=== PATIENT | female | born 1985 ===

== ENCOUNTER → 2020-11-06 10:08 | Outpatient (BNVA) | payer OTHER, SELFPAY | PROVIDERS: Visit Provider Internal Medicine Gastroenterology ==

== ENCOUNTER 2020-11-19 14:00 | Day surgery (SDC) | payer OTHER, SELFPAY ==
[2020-11-13 15:06] VITALS: BMI 24.7
--- NOTE | 2020-11-18 09:03 | P.CONAN_ITS ---
Documented by User: Nila Morales 11/18/20 09:04 HPI - Anesthesia Eval Consult details Narrative: 35yo F for Upper Endoscopy PMFSH Active Problems Active Problems: All Active Problems (Updated 11/13/20 @ 14:38 by Mellissa Oneal) Globus sensation (Acute) GERD without esophagitis (Acute) Early satiety (Acute) Past Medical History Medical History (Updated 11/13/20 @ 14:38 by Mellissa Oneal) Asthma Complication of section wound PTSD (post-traumatic stress disorder) Family History Family History (Updated 11/06/20 @ 10:14 by Yuliana Khalil) Maternal Grandmother Cancer Brother Gastroenteritis Stomach ulcer Surgical History Surgical History (Updated 11/13/20 @ 14:38 by Mellissa Oneal) History of back surgery History of esophagogastroduodenoscopy (EGD) Hx of section Hx of tubal ligation [place] teeth extracted Social History Social History (Updated 11/06/20 @ 10:14 by Yuliana Khalil) Household Members: Children Are you a primary career and transition teacher to a significant other at home: No Do you presently have visiting nurse or other home services: No Alcohol intake: current Alcohol intake frequency: does not drink Smoking Status: Never smoker Second Hand Smoke Exposure: No Use of substances other than those prescribed or required for medical reasons: No Have you been hit, kicked, punched, or otherwise hurt by someone within the past year? If so, by whom?: No Advance Directives: No Advance Directives Information Provided: No Advance Directives on File: No Meds Allergies Allergy/AdvReac Type Severity Reaction Status Date / Time No Known Allergies Allergy Unknown NOT Verified 11/13/20 14:56 APPLICABLE Home Medications Medication Instructions Recorded Confirmed Last Taken Type albuterol sulfate 2 puff INHALATION Q4H PRN 11/13/20 11/13/20 Unknown History venlafaxine 1 cap PO DAILY 11/13/20 11/19/20 11/19/20 07:00 History Exam Exam Date and Time: November 18, 2020 0903 Height,Weight and Vital Signs: Height 5 ft 2 in Weight 61.235 kg Assessment and Plan Assessment Anesthesia Assessment: Chart Reviewed Documented by User: Jessica Mckenna 11/19/20 14:34 [facility] Past Medical History Medical History (Updated 11/13/20 @ 14:38 by Mellissa Oneal) Asthma Complication of section wound PTSD (post-traumatic stress disorder) Family History Family History (Updated 11/06/20 @ 10:14 by Yuliana Khalil) Maternal Grandmother Cancer Brother Gastroenteritis Stomach ulcer Family history of problems with anesthesia: No Surgical History Surgical History (Updated 11/13/20 @ 14:38 by Mellissa Oneal) History of back surgery History of esophagogastroduodenoscopy (EGD) Hx of section Hx of tubal ligation [place] teeth extracted History of Problems with Anesthesia: No Social History Social History (Updated 11/06/20 @ 10:14 by Yuliana Khalil) Household Members: Children Are you a primary career and transition teacher to a significant other at home: No Do you presently have visiting nurse or other home services: No Alcohol intake: current Alcohol intake frequency: does not drink Smoking Status: Never smoker Second Hand Smoke Exposure: No Use of substances other than those prescribed or required for medical reasons: No Have you been hit, kicked, punched, or otherwise hurt by someone within the past year? If so, by whom?: No Advance Directives: No Advance Directives Information Provided: No Advance Directives on File: No Meds Allergies Allergy/AdvReac Type Severity Reaction Status Date / Time No Known Allergies Allergy Unknown NOT Verified 11/13/20 14:56 APPLICABLE Home Medications Medication Instructions Recorded Confirmed Last Taken Type albuterol sulfate 2 puff INHALATION Q4H PRN 11/13/20 11/13/20 Unknown History venlafaxine 1 cap PO DAILY 11/13/20 11/19/20 11/19/20 07:00 History Exam Height,Weight and Vital Signs: Vital Signs Temp Pulse Resp BP Pulse Ox 11/19/20 14:09 98.4 F 114 H 18 116/79 94 Airway Mallampati Class: II TM Dist: >3cm Neck ROM: Full Heart: RRR Lungs: CTAB Assessment and Plan Assessment Anesthesia Assessment: Anesthesia Plan Discussed and Chart Reviewed Final Anesthetic Review NPO: Yes ASA Class: II Final Preanesthetic Review: No Changes in Pt Med Stat, Meds/Allgs Chart Reviewed, Consent Obtained/Reviewed and Anes Risks/Benef Reviewed Patient Risk: Low Procedure Risk: Low Assessment/Block/Sedation in SS: Assess/Block/Sedation-SS Anesthetic Plan Anesthetic Plan: MAC: Disposition: Standard PACU
[2020-11-19] VITALS (7 sets, daily range): BP systolic 88–116; BP diastolic 46–79; PULSE 86–114; RESP 18–20; TEMP 36.9; O2SAT 94–100
--- NOTE | 2020-11-19 14:13 | P.HPSUR_ITS ---
Pre-Procedural Eval Section B Chief Complaint: early satiety,reflux disease Relevant Family History (Specify if Yes): No Relevant Social History: None Present Medications: see Short Stay Collaborative assessment Medical History: Significant History (asthma, PTSD) History of Previous Operations: Relevant previous surgery/procedure and date(s) (History of back surgery History of esophagogastroduodenoscopy (EGD) Hx of section Hx of tubal ligation [place] teeth extracted) Allergies: Allergies Allergy/AdvReac Type Severity Reaction Status Date / Time No Known Allergies Allergy Unknown NOT Verified 11/13/20 14:56 APPLICABLE Review of Systems Sugical H&P ROS: Negative: Constitution, Cardiovascular, Respiratory, Neurological, Psychiatric, Hem-Onc, Allergic/Immunologic, Gastrointestinal, Genitourinary, Musculoskeletal, Integumentary, Endocrine and Eyes/Ears/Nose/Throat Exam Surgical H&P Exam: Normal: HEENT, Normal: Heart, Normal: Lungs, Normal: Extremities, Normal: Abdomen, Normal: Skin and Normal: Neurological Plan Diagnosis/Plan: Unchanged I have reviewed the history and physical and performed a pertinent physical examination on my patient. No changes have occurred unless specified.
--- NOTE | 2020-11-19 14:14 | PM.OP ---
Brief Operative Note Date of Service: 11/19/20 Pre-op diagnosis: globus, dypshagia, GERD Post-op diagnosis: same Procedure: see op note Surgeon: Silke Renteria MD Anesthesia: MAC Estimated blood loss (mL): 0 Condition: stable Disposition: PACU
--- NOTE | 2020-11-19 14:14 | W.PM.OPN ---
Operative Note Operative Note Date of Service: 11/19/20 Narrative: Procedure Description: EGD FLEXIBLE TRANSORAL UPPER GASTROINTESTINAL ENDOSCOPY UPPER ENDOSCOPY Consent: Indications for the procedure and potential complications of bleeding, perforation, reaction to medications and missed diagnosis were discussed with the patient and informed consent was obtained. Instrument: Olympus GIF H 190 J mid size upper endoscope Monitoring: Vital signs and clinical assessment, continuous EKG monitoring, Pulse oximetry, Carbon Dioxide monitoring and blood pressure monitoring were done throughout the procedure. Procedure: The patient was placed in the left lateral decubitis position and pre-procedure medications were administered and a bite block was placed. The endoscope was inserted into the mouth and advanced under direct vision to the third part of duodenum. A careful inspection was made as the upper endoscope was withdrawn including a retroflexed examination of the proximal stomach; Findings and interventions are described below. Findings: Larynx:normal Esophagus: GE junction at 34 cm, diaphragm hiatus at 37 cm, non obstructive schatzki ring noted, dilation done with 17 mm dilator using savary as well as disruption with forceps. Bx taken from GEj, distal esophagus and proximal esophagus in separate jars. 3 cm sliding hiatal hernia noted. LA grade A esophagitis at GEJ. Stomach: Patchy gastric erythema with possible healed erosions in antrum. Biopsies were obtained. Grade 2 flap valve on retroflexed examination of the cardia. Duodenum: mild bulbar inflammation and normal descending duodenum, bx taken Intervention: Biopsies as noted above, savary dilation Impression/Findings: schatzki ring hiatal hernia gastritis duodenitis esophagitis PLAN: High dose PPi for 3 months, can use carafate if needed if sx persist then referral for hiatal hernia repair, consideration of fundoplication as well reflux precautions
[2020-11-19] MEDS: Lactated Ringers 1,000 ML 100 ML IVCONT (14:23)
--- NOTE | 2020-11-19 17:39 | HO.POSTANES ---
Post Anesthesia Evaluation Post Anesthesia Evaluation Vital Signs: Vital Signs Temp Pulse Resp BP Pulse Ox 11/19/20 15:42 98.5 F 11/19/20 15:30 86 18 107/71 100 11/19/20 15:15 93 18 108/66 100 11/19/20 15:12 90 18 105/68 100 11/19/20 15:08 90 18 94/59 L 11/19/20 15:00 98.5 F 98 20 88/46 L 98 11/19/20 14:09 98.4 F 114 H 18 116/79 94 Anesthesia: Monitored Mental Status: Awake Pain Control: Satisfactory Nausea/Vomiting: None Hydration: Adequate Anesthesia-Related Issues: No Anes. Related Issues
== END 2020-11-19 15:48 | disposition home or self-care (01) ==
PROVIDERS: Visit Provider Internal Medicine Gastroenterology
PROC: 0DJ08ZZ Inspection of Upper Intestinal Tract, Via Natural or Artificial Opening Endoscopic (ICD-10-PCS; CPT 43235; principal; 2020-11-19 15:40)
DX: K22.2 Esophageal obstruction (principal); K29.80 Duodenitis without bleeding; K29.70 Gastritis, unspecified, without bleeding; K21.00 Gastro-esophageal reflux disease with esophagitis, without bleeding; K44.9 Diaphragmatic hernia without obstruction or gangrene
CPT/HCPCS: 43248; 43239; 88305; 88342; J2250

== ENCOUNTER → 2021-01-29 09:09 | Outpatient (BNVA) | payer OTHER, SELFPAY | PROVIDERS: Visit Provider Internal Medicine Gastroenterology ==

== ENCOUNTER 2023-02-17 10:51 | Outpatient (REF) | payer OTHER, SELFPAY ==
[2023-02-17 12:18] LABS: MANUAL DIFF FLAG NO
[2023-02-17 13:17] LABS: Basophils Percent Auto 0.5 % (0-2); Eosinophils Absolute Auto 0.4 X10*3/uL (0.0-0.4); Eosinophils Percent Auto 6.2 % (0-4); Hematocrit 39.5 % (37.0-47.0); Hemoglobin 13.8 g/dl (12.0-16.0); Imm Gran Abs Auto 0.01 X10*3/uL (0.00-0.03); Imm Gran Pct Auto 0.2 % (0.0-0.4); Lymphocytes Absolute Auto 1.5 X10*3/uL (1.2-4.9); Lymphocytes Percent Auto 23.5 % (20-40); Mean Corpuscular HGB Conc 34.9 g/dl (31.0-35.0); Mean Corpuscular Hemoglobin 31.2 pg (27.0-33.0); Mean Corpuscular Volume 89.2 fL (80.0-98.0); Mean Platelet Volume 10.3 fL (9.4-12.3); Monocytes Absolute Auto 0.6 X10*3/uL (0.1-1.2); Monocytes Percent Auto 9.6 % (2-11); Neutrophils Absolute Auto 3.9 x10*3/uL (2.0-8.3); Platelet Count 308 X10*3/uL (160-400); Red Blood Count 4.43 X10*6/uL (4.20-5.50); Red Cell Distribution Width 11.7 % (11.0-16.0); White Blood Count 6.5 X10*3/uL (4.8-10.8)
[2023-02-17 13:58] LABS: Alanine Aminotransferase 13 U/L (0-31); Albumin Level 4.5 g/dL (3.5-5.0); Alkaline Phosphatase 53 U/L (39-117); Anion Gap 10 (12-20); Aspartate Amino Transferase 14 U/L (5-31); Bilirubin Total 0.6 mg/dL (0.0-1.0); Blood Urea Nitrogen 11 mg/dL (9-16); C Reactive Protein 0.17 mg/dL (< or = 0.50); Calcium 9.9 mg/dL (8.4-10.2); Carbon Dioxide 25 mmol/L (22-29); Chloride 107 mmol/L (96-108); Estimated Glomerular Filt Rate > 60; Glucose Random 78 mg/dL (60-115); Potassium 4.1 mmol/L (3.3-5.1); Sodium 138 mmol/L (135-145); Total Protein 6.8 g/dL (6.5-8.0)
[2023-02-17 14:00] LABS: Erythrocyte Sedimentation Rate 7 MM/HR (0-20)
[2023-02-17 14:29] LABS: Ferritin 20 ng/mL (10-122); Folate 12.2 ng/mL (> or = 4.0); Vitamin B12 447 pg/mL (200-900); Vitamin D 25-OH Total 22.8 ng/mL (>30)
[2023-02-22 16:19] LABS: Zinc 54 mcg/dL (60-130)
[2023-02-23 04:09] LABS: Vitamin C 0.7 mg/dL (0.3-2.7)
[2023-02-23 23:39] LABS: Vitamin A 54 mcg/dL (38-98)
[2023-02-24 00:24] LABS: Nicotinamide 26 ng/mL; Vit B3 - Nicotinic Acid <20 ng/mL
[2023-02-24 13:09] LABS: Alpha-Tocopherol 10.7 mg/L (5.7-19.9); Beta-Gamma Tocopherol <1.0 mg/L (<=4.3)
[2023-02-24 16:29] LABS: Vitamin B5 (Pantothenic Acid) <40 ng/mL (<275)
[2023-02-25 16:13] LABS: Vitamin B1 10 nmol/L (8-30)
[2023-02-25 18:54] LABS: Vitamin K1 454 pg/mL (130-1500)
[2023-02-26 07:23] LABS: Transglutaminase Ab IgG <1.0 U/mL; Transglutaminase IgA <1.0 U/mL
[2023-02-26 10:23] LABS: Gliadin Deamidated IgA Ab <1.0 U/mL; Gliadin Deamidated IgG Ab 10.8 U/mL
[2023-02-26 15:08] LABS: Vitamin B6 5.7 ng/mL (2.1-21.7)
== END 2023-02-17 10:52 | disposition home or self-care (01) ==
LOC: HO.LAB 10:51
PROVIDERS: PCP Internal Medicine; Visit Provider Internal Medicine Gastroenterology
DX: K21.9 Gastro-esophageal reflux disease without esophagitis (principal); K51.50 Left sided colitis without complications; K75.81 Nonalcoholic steatohepatitis (NASH); R10.33 Periumbilical pain; G89.29 Other chronic pain; R63.4 Abnormal weight loss; R19.7 Diarrhea, unspecified; R68.81 Early satiety; R09.89 Other specified symptoms and signs involving the circulatory and respiratory systems
CPT/HCPCS: 36415; 80053; 82180; 82306; 82550; 82607; 82728; 82746; 84207; 84425; 84443; 84446; 84590; 84591; 84597; 84630; 85025; 85652; 86140; 86258; 86364; 99212

== ENCOUNTER 2023-03-02 06:19 | Day surgery (SDC) | payer OTHER, SELFPAY ==
[2023-02-28 13:09] VITALS: BMI 21.4
--- NOTE | 2023-03-01 12:33 | HO.ANESPROP2 ---
Documented by User: Nila Morales NP 03/01/23 12:35 HPI - Anesthesia Eval Consult details Narrative: 37yo F for Upper Endoscopy PMFSH Active Problems Active Problems: All Active Problems (Updated 02/28/23 @ 13:07 by Mellissa Oneal, RN) Globus sensation (Acute) GERD without esophagitis (Acute) Early satiety (Acute) Diarrhea (Acute) Weight loss (Acute) Past Medical History Medical History (Updated 02/28/23 @ 13:07 by Mellissa Oneal, RN) Asthma Complication of section wound GERD (gastroesophageal reflux disease) PTSD (post-traumatic stress disorder) Family History Family History Maternal Grandmother Cancer Brother Gastroenteritis Stomach ulcer Family history of problems with anesthesia: No Surgical History Surgical History (Updated 02/28/23 @ 13:06 by Mellissa Oneal RN) History of back surgery History of esophagogastroduodenoscopy (EGD) Hx of section Hx of tubal ligation [place] teeth extracted History of Problems with Anesthesia: No Social History Social History Household Members: Children Are you a primary cardiac care nurse to a significant other at home: No Do you presently have visiting nurse or other home services: No Alcohol intake: current Alcohol intake frequency: does not drink Patient Tobacco Use Status: Never used Tobacco Second Hand Smoke Exposure: No Meds Allergies Allergy/AdvReac Type Severity Reaction Status Date / Time No Known Allergies Allergy Unknown NOT Verified 02/17/23 11:01 APPLICABLE Home Medications Medication Instructions Recorded Confirmed Last Taken Type albuterol sulfate 90 mcg/actuation 2 puff inhalation Q4H PRN wheezing 11/13/20 02/28/23 Unknown History aerosol inhaler bupropion HCl 150 mg tablet,12 hr 150 mg PO BID 02/17/23 02/28/23 Unknown History sustained-release Exam Exam Date and Time: March 01, 2023 1233 Height,Weight and Vital Signs: Height 5 ft 2 in Weight 53.07 kg Pertinent Lab Results Pertinent Lab Results: Laboratory Tests 02/17/23 02/17/23 12:15 12:15 WBC 6.5 Hgb 13.8 Hct 39.5 Plt Count 308 Sodium 138 Potassium 4.1 Chloride 107 Carbon Dioxide 25 BUN 11 Creatinine 0.91 Assessment and Plan Assessment Anesthesia Assessment: Chart Reviewed Final Anesthetic Review Family History of Problems with Anesthesia: No History of Problems with Anesthesia: No Documented by User: Alfredito Granados MD 03/02/23 18:13 [facility] Past Medical History Medical History (Updated 02/28/23 @ 13:07 by Mellissa Oneal, RN) Asthma Complication of section wound GERD (gastroesophageal reflux disease) PTSD (post-traumatic stress disorder) Functional capacity: independent ambulation Family History Family History Maternal Grandmother Cancer Brother Gastroenteritis Stomach ulcer Surgical History Surgical History (Updated 02/28/23 @ 13:06 by Mellissa Oneal RN) History of back surgery History of esophagogastroduodenoscopy (EGD) Hx of section Hx of tubal ligation [place] teeth extracted Social History Social History Household Members: Children Are you a primary cardiac care nurse to a significant other at home: No Do you presently have visiting nurse or other home services: No Alcohol intake: current Alcohol intake frequency: does not drink Patient Tobacco Use Status: Never used Tobacco Second Hand Smoke Exposure: No Meds Allergies Allergy/AdvReac Type Severity Reaction Status Date / Time No Known Allergies Allergy Unknown NOT Verified 02/17/23 11:01 APPLICABLE Home Medications Medication Instructions Recorded Confirmed Last Taken Type albuterol sulfate 90 mcg/actuation 2 puff inhalation Q4H PRN wheezing 11/13/20 02/28/23 Unknown History aerosol inhaler bupropion HCl 150 mg tablet,12 hr 150 mg PO BID 02/17/23 02/28/23 Unknown History sustained-release Exam Airway Mallampati Class: III TM Dist: >3cm Neck ROM: Full Loose/Missing/Broken Teeth: Yes Assessment and Plan Assessment Anesthesia Assessment: Anesthesia Plan Discussed Final Anesthetic Review NPO: Yes ASA Class: II Final Preanesthetic Review: Meds/Allgs Chart Reviewed, Consent Obtained/Reviewed and Anes Risks/Benef Reviewed Patient Risk: Intermediate Procedure Risk: Intermediate Anesthetic Plan Anesthetic Plan: MAC: and Agree w/ Assess. and Plan Disposition: Standard PACU
--- NOTE | 2023-03-02 06:11 | MHC.SHP ---
Pre-Procedural Eval Section A Date of Service: 03/02/23 The patient is an INPATIENT: No The History & Physical has been completed within 30 days and I have reviewed it.: Yes Section B Chief Complaint: Gastro-esophageal reflux disease without esophagit Details of Present Illness: dysphagia Present Medications: see Short Stay Collaborative assessment Medical History: Significant History Allergies: Allergies Allergy/AdvReac Type Severity Reaction Status Date / Time No Known Allergies Allergy Unknown NOT Verified 02/17/23 11:01 APPLICABLE Review of Systems Sugical H&P ROS: Negative: Constitution, Cardiovascular, Respiratory, Neurological, Psychiatric, Hem-Onc, Allergic/Immunologic, Gastrointestinal, Genitourinary, Musculoskeletal, Integumentary, Endocrine and Eyes/Ears/Nose/Throat Exam Surgical H&P Exam: Normal: HEENT, Normal: Heart, Normal: Lungs, Normal: Extremities, Normal: Abdomen, Normal: Skin and Normal: Neurological Plan Diagnosis/Plan: Unchanged I have reviewed the history and physical and performed a pertinent physical examination on my patient. No changes have occurred unless specified. Time Spent With Patient Time: Total time managing care of this patient today ____ minutes.
[2023-03-02 06:32] VITALS: BP 101/69; PULSE 95; RESP 16; TEMP 36.2; O2SAT 100; BMI 21.4
[2023-03-02] MEDS: Lactated Ringers 1,000 ML 100 ML IVCONT (06:47)
--- NOTE | 2023-03-02 07:51 | W.PM.OPN ---
Operative Note Operative Note Date of Service: 03/02/23 Narrative: Procedure Description: EGD Indication: dysphagia Anesthesia: MAC FLEXIBLE TRANSORAL UPPER GASTROINTESTINAL ENDOSCOPY UPPER ENDOSCOPY Consent: Indications for the procedure and potential complications of bleeding, perforation, reaction to medications and missed diagnosis were discussed with the patient and informed consent was obtained. Instrument: Olympus GIF H 190 J mid size upper endoscope Monitoring: Vital signs and clinical assessment, continuous EKG monitoring, Pulse oximetry, Carbon Dioxide monitoring and blood pressure monitoring were done throughout the procedure. Procedure: The patient was placed in the left lateral decubitis position and pre-procedure medications were administered and a bite block was placed. The endoscope was inserted into the mouth and advanced under direct vision to the third part of duodenum. A careful inspection was made as the upper endoscope was withdrawn including a retroflexed examination of the proximal stomach; Findings and interventions are described below. Findings: Larynx:normal Esophagus: GE junction at 34? cm, diaphragm hiatus at 37 cm, non obstructive schatzki ring noted, dilation done with 18 mm dilator using savary as well as disruption with forceps. Bx taken from GEj, distal esophagus and proximal esophagus in separate jars. 3 cm sliding hiatal hernia noted. Stomach: Mild erythema. Biopsies were obtained. Grade 2 flap valve on retroflexed examination of the cardia. Duodenum: normal duodenum, bx taken Intervention: Biopsies as noted above, savary dilation Impression/Findings: schatzki ring hiatal hernia gastritis PLAN: cont with PPI if sx persist then manometry and referral for hiatal hernia repair, consideration of fundoplication as well reflux precautions
[2023-03-02 08:09] VITALS: BP 94/52; PULSE 93; RESP 16; TEMP 36.2; O2SAT 100
[2023-03-02 08:24] VITALS: BP 105/66; PULSE 96; RESP 16; TEMP 36.2; O2SAT 100
== END 2023-03-02 08:42 | disposition home or self-care (01) ==
PROVIDERS: PCP Internal Medicine; Visit Provider Internal Medicine Gastroenterology
PROC: 0DJ08ZZ Inspection of Upper Intestinal Tract, Via Natural or Artificial Opening Endoscopic (ICD-10-PCS; CPT 43235; principal; 2023-03-02 07:30)
DX: R13.10 Dysphagia, unspecified (principal); K21.9 Gastro-esophageal reflux disease without esophagitis; K22.2 Esophageal obstruction; R09.89 Other specified symptoms and signs involving the circulatory and respiratory systems; R68.81 Early satiety; R63.4 Abnormal weight loss; Z68.21 Body mass index [BMI] 21.0-21.9, adult; R19.7 Diarrhea, unspecified; K29.50 Unspecified chronic gastritis without bleeding; K44.9 Diaphragmatic hernia without obstruction or gangrene; J45.909 Unspecified asthma, uncomplicated; F43.10 Post-traumatic stress disorder, unspecified; Z79.899 Other long term (current) drug therapy; Z98.890 Other specified postprocedural states
CPT/HCPCS: 43248; 43239; 88305; 88342; C1769

== ENCOUNTER 2023-03-20 08:30 | Outpatient (REF) | payer OTHER, SELFPAY ==
--- NOTE | ~2023-03-20 | CT_ITS ---
EXAMINATION: CT ABDOMEN AND PELVIS WITH CONTRAST CLINICAL INFORMATION: Abnormal weight loss. Abdominal pain and diarrhea. COMPARISON: Abdominal ultrasound 04/20/2019. TECHNIQUE: Multidetector volumetric images were obtained from the superior aspect of the liver through the pubic symphysis following administration 85 mL of Omnipaque 350 intravenous contrast. Sagittal and coronal reformatted images were obtained on the technologist's workstation. Oral contrast: Yes This CT examination was performed using dose optimization techniques as appropriate, variously including the following: *Automated exposure control *Adjustment of mA and/or kV according to patient size (this includes techniques or standardized protocols for targeted exams where dose is matched to indication/reason for exam; i.e. extremities or head) *Use of iterative reconstruction technique DLP: 85 mGy-cm FINDINGS: LUNG BASES: The visualized lung bases are unremarkable. LIVER, GALLBLADDER, AND BILIARY TREE: The liver is normal in size, shape, and attenuation. No focal hepatic lesion or biliary ductal dilatation is present. The gallbladder is unremarkable with no evidence of radiopaque gallstones, gallbladder wall thickening, or obvious pericholecystic inflammatory changes. PANCREAS: No discrete pancreatic mass. No ductal dilatation. SPLEEN: Spleen is normal in size. ADRENAL GLANDS: No adrenal mass. KIDNEYS AND URETERS: The kidneys are normal in size, shape, and attenuation. No hydronephrosis, hydroureter, or calculi seen. No perinephric stranding. BLADDER: Unremarkable. GASTROINTESTINAL TRACT: The small bowel is normal in caliber. No mesenteric mass or fluid. The appendix is normal. The large bowel is normal in caliber. No discrete mass is seen. There is no fat deposition in the colon wall to suggest chronic inflammatory bowel disease. ABDOMINAL WALL: No significant hernia is appreciated. LYMPH NODES: No adenopathy. VASCULAR: Unremarkable. PELVIC VISCERA: Fibroid uterus. OSSEOUS STRUCTURES: No suspicious osseous lesions. CT/CT abdomen pelvis w IV con IMPRESSION: No evidence of abdominal malignancy. No evidence of active enterocolitis. Fibroid uterus. Fleischner guidelines were followed.
[2023-03-20] MEDS: iohexoL 350 MG/ML 100 ML INFUS..BTL IV (10:29)
[2023-03-20] MEDS: Barium Sulfate Oral (Vanilla) 450 ML ORAL.SUSP 900 ML PO (10:30)
== END 2023-03-20 08:31 | disposition home or self-care (01) ==
LOC: HO.CT 08:30
PROVIDERS: PCP Internal Medicine; Visit Provider Internal Medicine Gastroenterology
DX: R63.4 Abnormal weight loss (principal); R19.7 Diarrhea, unspecified; R68.81 Early satiety
CPT/HCPCS: 74177; Q9967

== ENCOUNTER 2023-09-15 08:42 | Outpatient (AMB) | payer OTHER, SELFPAY ==
--- NOTE | 2023-09-15 08:42 | A.OFFVIS_ITS ---
Intake Intake Visit Reasons: 8 week follow up Intake Note: Vera presents as a video call today 8 week follow up. CC: Really bad reflux that continues she states it is very painful. She still has issues with swallowing. Pantoprazole helps at times but other days she will feel really sick it is not a consistent cure for her. Allergies No Known Allergies Allergy (Unknown, Verified 02/17/23 11:01) NOT APPLICABLE HPI 8 week follow up HPI Details 37 yr old being called for f/u RECAP: she has horrible taste in her mouth globus sensation feeling something in throat can have food stuck in throat feels full all the time gets chest discomfort/pain--seems to be constant, stabbing sensation food might helps sx for 30 mins before recurrence she tried omeprazole , pantoprazole with variable success but not back to baseline on bland diet, not helped she has no constipation or diarrhea sx started about 3 months ago, but swallowing issue been longer she has asthma, worse in winter, allergy season no eczema brother has eosinophilic gastroenteritis no pets at home no hives, no mental fogginess sleep is poor due to PTSD EGD done: 11/2020----with dilation schatzki ring hiatal hernia gastritis--looked like healed erosions as well duodenitis esophagitis plan was for high dose PPI for 3 months and assess response rept EGD: EGD 02/2023 Findings: Larynx:normal Esophagus: GE junction at 34 cm, diaphragm hiatus at 37 cm, non obstructive schatzki ring noted, dilation done with 18 mm dilator using savary as well as disruption with forceps. Bx taken from GEj, distal esophagus and proximal esophagus in separate jars. 3 cm sliding hiatal hernia noted. Stomach: Mild erythema. Biopsies were obtained. Grade 2 flap valve on retroflexed examination of the cardia. Duodenum: normal duodenum, bx taken Intervention: Biopsies as noted above, savary dilation Impression/Findings: schatzki ring hiatal hernia gastritis PLAN: cont with PPI if sx persist then manometry and referral for hiatal hernia repair, consideration of fundoplication as well reflux precautions Ct 03/2023: no active colitis, fibroids INTERIM: she has ongoing regurgitaiton she felt tempt benefit from dilation but didn;t last she has issues with swallowing solid,s she drinks a ton of water to try to help passgae of food she can get chest pain with reflux she has sour, bad taste in mouth ongoing stress issues as before --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 Assessment, 1/ Regurgitation, reflux and dysphagia, suspectd due to GERD, hernia noted on EGD not seen on CT but it is a sliding hiatal hernia, PLAN: 1/change PPI to esomeprazole 2/ refer Dr Mcgraw for eval for hernia repair , maybe partial fundoplication PFSH Medical History (Updated 02/28/23 @ 13:07 by Mellissa Oneal, RN) GERD (gastroesophageal reflux disease) Asthma PTSD (post-traumatic stress disorder) Complication of section wound Surgical History (Updated 02/28/23 @ 13:06 by Mellissa Oneal RN) History of back surgery Hx of section Hx of tubal ligation History of esophagogastroduodenoscopy (EGD) [place] teeth extracted Family History Maternal Grandmother Cancer Brother Gastroenteritis Stomach ulcer Social History Household Members: Children Are you a primary primary care nurse practitioner to a significant other at home: No Do you presently have visiting nurse or other home services: No Alcohol intake: current Alcohol intake frequency: does not drink Patient Tobacco Use Status: Never used Tobacco Second Hand Smoke Exposure: No Assessment & Plan Assessment & Plan (1) GERD without esophagitis: Code(s): K21.9 - Gastro-esophageal reflux disease without esophagitis Plan see above Telehealth Telehealth Location of provider rendering services: practice address Location of patient: address on file Patient Identification confirmed using: Name, : Yes Telehealth method: video Patient verbally consented to treatment: Yes Patient verbally consented to billing insurance company: Yes Patient informed of any privacy concerns related to visit: Yes Minutes spent on Phone/Video with Pt.: 11 Coding Level of Care Code Tele Est Pt Level 3 (39472) Diagnoses GERD without esophagitis K21.9
== END 2023-09-15 09:49 | disposition home or self-care (01) ==
LOC: HO.HGI 08:42
PROVIDERS: PCP Internal Medicine; Visit Provider Internal Medicine Gastroenterology
DX: K21.9 Gastro-esophageal reflux disease without esophagitis (principal)
CPT/HCPCS: 99213

== ENCOUNTER → 2023-09-15 08:42 | Outpatient (BNVA) | payer OTHER, SELFPAY | PROVIDERS: PCP Internal Medicine; Visit Provider Internal Medicine Gastroenterology ==

== ENCOUNTER → 2023-10-06 09:22 | Outpatient (BNVA) | payer OTHER, SELFPAY | PROVIDERS: PCP Internal Medicine; Visit Provider Physician Assistant Surgical ==

== ENCOUNTER 2023-10-11 08:19 | Outpatient (AMB) | payer OTHER, SELFPAY ==
--- NOTE | 2023-10-11 13:23 | MHC.OFFVISWM ---
Intake Intake Visit Reasons: TV Hernia Consult - Dr. Renteria Allergies No Known Allergies Allergy (Unknown, Verified 10/11/23 13:23) NOT APPLICABLE Medication List - Last Reconciled 10/11/23 by Sarmad Garza MD albuterol sulfate 90 mcg/actuation 2 puffs inhalation Q4H PRN bupropion HCl 150 mg PO BID esomeprazole magnesium 40 mg PO DAILY sucralfate (Carafate) 10 mL PO BID HPI TV Hernia Consult - Dr. Renteria HPI Details Start time: 1.20pm, End time: 1.56pm ?I spent 31 minutes speaking with the patient on the phone plus an additional 5 minutes reviewing and updating records for a total of 36 minutes HPI Comments History of Present Illness Details He has been taking Pantoprazole and recently changed to Nexium and Carafate. Has breakthrough symptoms: chest pain after she eats about 30 minutes after meal ingestion, bad taste at her mouth, bad cough Recent EGD and 11/29: 3cm hernia. Recent PAth: no esophagitis. h pylori negative CT abd/pelvis 03/2023: very small hernia, no other pathology PFSH Medical History (Updated 10/11/23 @ 13:50 by Sarmad Garza MD) Abdominal pain GERD (gastroesophageal reflux disease) Asthma PTSD (post-traumatic stress disorder) Complication of section wound Surgical History (Updated 02/28/23 @ 13:06 by Mellissa Oneal RN) History of back surgery Hx of section Hx of tubal ligation History of esophagogastroduodenoscopy (EGD) [place] teeth extracted Family History Maternal Grandmother Cancer Brother Gastroenteritis Stomach ulcer Social History Household Members: Children Are you a primary nursing care partner to a significant other at home: No Do you presently have visiting nurse or other home services: No Alcohol intake: current Alcohol intake frequency: does not drink Patient Tobacco Use Status: Never used Tobacco Second Hand Smoke Exposure: No Assessment & Plan Assessment & Plan (1) GERD without esophagitis: Code(s): K21.9 - Gastro-esophageal reflux disease without esophagitis Plan We discussed at length all the existing findings and symptoms. I recommended to do first and abdominal ultrasound to rule out cholelithiasis as this could be the cause of the pain that is her primary symptom at the moment. If the ultrasound is negative, I will order a HIDA with CCK to assess the EF of the gallbladder. If both tests are negative then the patient will need further w/up with an UGI and a 24-hr Ph Study. The patient is in agreement with this plan. Orders: Orders US abdomen comp w elastography Today R10.9 - Unspecified abdominal pain Telehealth Telehealth Location of provider rendering services: practice address Location of patient: address on file Patient Identification confirmed using: Name, : Yes Telehealth method: voice only Patient verbally consented to treatment: Yes Patient verbally consented to billing insurance company: Yes Patient informed of any privacy concerns related to visit: Yes Minutes spent on Phone/Video with Pt.: 36 Coding Level of Care Code Tele New Pt Level 3 (36046) Diagnoses GERD without esophagitis K21.9 Time Spent (min) 36
== END 2023-10-11 13:57 | disposition home or self-care (01) ==
LOC: HO.HBS 08:19
PROVIDERS: PCP Internal Medicine; Visit Provider Surgery
DX: K21.9 Gastro-esophageal reflux disease without esophagitis (principal)
CPT/HCPCS: 99203

== ENCOUNTER → 2023-10-11 08:19 | Outpatient (BNVA) | payer OTHER, SELFPAY | PROVIDERS: PCP Internal Medicine; Visit Provider Surgery ==

== ENCOUNTER 2024-01-05 09:15 | Outpatient (REF) | payer OTHER, SELFPAY ==
--- NOTE | ~2024-01-05 | US_ITS ---
EXAMINATION: US COMPLETE ABDOMEN WITH LIVER ELASTOGRAPHY CLINICAL INFORMATION: Abdominal pain. COMPARISON: CT abdomen and pelvis dated 03/20/2023; abdominal ultrasound dated 04/20/2009. TECHNIQUE: Real-time imaging of the abdominal viscera. Noninvasive ultrasound liver fibrosis assessment is performed using Belinda ElastPQ point quantification shear wave elastography (2D-SWE) with a C5-2 MHz transducer. Multiple elastography samples are obtained. FINDINGS: PANCREAS: Normal. The visualized pancreatic head and body are normal in appearance. The remainder of the pancreas is obscured from visualization by the overlying bowel gas. ABDOMINAL AORTA: The proximal, middle, and distal aortic segments are normal in caliber. INFERIOR VENA CAVA: Visualized portions are normal. LIVER: Normal. The liver demonstrates normal size, contour and echogenicity. No focal lesion or intrahepatic biliary duct dilatation. The right lobe measures 13.2 cm in length. The left lobe measures 11.0 cm in length. Portal flow is towards the liver (hepatopetal). Shear wave liver elastography median stiffness is 1.87 m/s (reference: normal median stiffness is 1.3 m/s or less). IQR/median stiffness to assess sampling precision is 0.09 (reference: good quality data set is IQR/median stiffness of 0.15 or less). GALLBLADDER: Normal. The gallbladder is physiologically distended without evidence of stones, sludge, polyps, wall thickening or pericholecystic fluid. COMMON BILE DUCT: Normal in caliber measuring 0.2 cm in diameter. RIGHT KIDNEY: Normal. No hydronephrosis. No renal calculi or focal parenchymal lesions. The kidney measures 9.2 cm in maximum dimension. LEFT KIDNEY: Normal. No hydronephrosis. No renal calculi or focal parenchymal lesions. The kidney measures 9.6 cm in maximum dimension. SPLEEN: Normal. The spleen measures 9.1 cm in maximum dimension. FREE FLUID: None. US/US abdomen comp w elastography IMPRESSION: Liver elastography: Measurements are suggestive of compensated advanced chronic liver disease but need further test for confirmation. REFERENCE: Society of Radiologists in Ultrasound Liver Stiffness Thresholds (2019): LIVER STIFFNESS THRESHOLDS: *Liver Stiffness equal or less than 1.3 m/s: High probability of being normal. *Liver Stiffness less than 1.7 m/s: In the absence of other known clinical signs, rules out compensated advanced chronic liver disease. *Liver Stiffness 1.7-2.1 m/s: Suggestive of compensated advanced chronic liver disease but need further test for confirmation. *Liver Stiffness over 2.1 m/s: Rules in compensated advanced chronic liver disease. *Liver Stiffness over 2.4 m/s: Suggestive of clinically significant portal hypertension. QUALITY OF DATA SET: *IQR/Median value equal or less than 0.15 implies a quality data set. *IQR/Median value over 0.15 implies a poor quality data set. SIGNIFICANT CHANGE FROM PRIOR EXAM: Significant change if liver stiffness measurement is 10% or greater from prior exam. OTHER CONSIDERATIONS: The stage of liver fibrosis may be overestimated in the setting of acute hepatitis, liver inflammation, elevated liver function tests, hepatic vascular congestion, obstructive cholestasis, non-fasting state, and infiltrative diseases such as amyloidosis and lymphoma. In some patients with NAFLD, the liver stiffness thresholds for compensated advanced chronic liver disease may be lower. In causes other than viral hepatitis and NAFLD, liver stiffness thresholds are not well established.
== END 2024-01-05 09:16 | disposition home or self-care (01) ==
LOC: HO.US 09:15
PROVIDERS: Visit Provider Surgery
DX: R10.9 Unspecified abdominal pain (principal)
CPT/HCPCS: 76700; 76981

== ENCOUNTER 2024-01-19 11:04 | Outpatient (REF) | payer OTHER, SELFPAY ==
[2024-01-19 13:00] LABS: Alanine Aminotransferase 88 U/L (0-31); Albumin Level 4.2 g/dL (3.5-5.0); Alkaline Phosphatase 52 U/L (39-117); Anion Gap 10 (12-20); Aspartate Amino Transferase 55 U/L (5-31); Bilirubin Total 0.5 mg/dL (0.0-1.0); Blood Urea Nitrogen 15 mg/dL (9-16); Calcium 9.7 mg/dL (8.4-10.2); Carbon Dioxide 27 mmol/L (22-29); Chloride 106 mmol/L (96-108); Estimated Glomerular Filt Rate > 60; Glucose Random 62 mg/dL (60-115); Sodium 139 mmol/L (135-145)
[2024-01-20 04:14] LABS: HBS Num1 33.94 mIU/mL (0-7.99); HBc Num1 0.16 S/CO (0.00-0.79); HBsAGNum1 0.23 S/CO (0.00-0.99); Hepatitis A Antibody IgM 0.16 Index (0-0.79); Hepatitis B Core Antibody Nonreactive (Nonreactive); Hepatitis B Surface Antigen Negative (Negative); ~HepC Num1 0.22 S/CO (0.00-0.79); ~Hepatitis A Antibody IgM Nonreactive (Nonreactive); ~Hepatitis B Surface Antibody REACTIVE (Nonreactive); ~Hepatitis C Antibody Nonreactive (Nonreactive)
[2024-01-26 01:03] LABS: FIB-ALT 74 U/L (6-29); FIB-Alpha-2-Macroglobulin 185 mg/dL (106-279); FIB-Apolipoprotein A1 237 mg/dL (101-198); FIB-GGT 20 U/L (3-50); FIB-Haptoglobin 94 mg/dL (43-212); FIB-Total Bilirubin 0.5 mg/dL (0.2-1.2); Liver Fibrosis Score 0.04; Liver Fibrosis Stage F0; Nec Inflam Act Grade A1; Nec Inflam Act Score 0.35
== END 2024-01-19 11:05 | disposition home or self-care (01) ==
LOC: HO.LAB 11:04
PROVIDERS: PCP Internal Medicine; Visit Provider Internal Medicine Gastroenterology
DX: K75.81 Nonalcoholic steatohepatitis (NASH) (principal)
CPT/HCPCS: 36415; 80053; 81596; 86704; 86706; 86709; 86803; 87340

== ENCOUNTER 2024-01-25 11:30 | Outpatient (REF) | payer OTHER, SELFPAY ==
[2024-01-25 13:26] LABS: C Reactive Protein 0.25 mg/dL (< or = 0.50); Ferritin 20 ng/mL (10-122)
[2024-01-25 13:29] LABS: Erythrocyte Sedimentation Rate 8 MM/HR (0-20)
[2024-01-26 13:55] LABS: Immunoglobulin G 856 mg/dL (600-1640)
[2024-01-27 06:59] LABS: Alpha 1 Anti-trypsin 148 mg/dL (83-199)
[2024-01-29 15:33] LABS: Anti Nuclear Antibody Screen POSITIVE (NEGATIVE)
[2024-01-30 20:48] LABS: Aldolase 4.2 U/L (<=8.1)
[2024-01-31 06:09] LABS: Liver Kidney Microsomal Ab <=20.0 U (<=20.0)
== END 2024-01-25 11:31 | disposition home or self-care (01) ==
LOC: HO.LAB 11:30
PROVIDERS: Internal Medicine Gastroenterology; PCP Internal Medicine; Visit Provider Dentist Pediatric Dentistry
DX: K52.839 Microscopic colitis, unspecified (principal); K75.81 Nonalcoholic steatohepatitis (NASH); R79.82 Elevated C-reactive protein (CRP)
CPT/HCPCS: 36415; 82085; 82103; 82550; 82728; 82784; 85652; 86038; 86039; 86140; 86376

== ENCOUNTER → 2024-01-29 07:56 | Outpatient (REF) | payer OTHER, SELFPAY ==
--- NOTE | ~2024-01-29 | NM_ITS ---
EXAMINATION: BILIARY TRACT IMAGING STUDY WITH CCK CLINICAL INFORMATION: Unspecified abdominal pain. COMPARISON: Abdominal ultrasound done on 12/26/2023. TECHNIQUE: Serial gamma scintillation camera images were obtained over the abdomen for a total observation period of 60 minutes following the intravenous administration of 5.0 mCi Tc-99m mebrofenin. FINDINGS: There is good concentration of activity in the liver by 5 minutes post injection. Biliary activity is visualized by 10 minutes. The gallbladder is well visualized by 15 minutes. Small bowel is well visualized by 25 minutes. At 60 minutes post radiopharmaceutical injection, a 30-minute infusion of 1.1 micrograms Sincalide was then begun and an additional 40 minutes of images were obtained. There is rapid emptying of the gallbladder. By the end of the study there is good clearance of activity from the liver and visualization of diffuse small bowel activity. The calculated gallbladder ejection fraction is 82% (Normal range of gallbladder ejection fraction is between 35-80%; GBEF <35% is considered biliary hypokinesia and >80% is considered biliary hyperkinesia; Ref. #1-Clinical Journal of Gastroenterology (2020) 14:1308?1317; Ref.#2-[email or web address]). NM/NM hepatobiliary w pharm IMPRESSION: Visualization of the gallbladder is evidence of a patent cystic duct and strong evidence against the diagnosis of acute cholecystitis. The common bile duct is patent. Evidence of biliary hyperkinesia. Liver function appears normal.
== END ==
LOC: HO.NUCMED 07:56
PROVIDERS: PCP Internal Medicine; Visit Provider Surgery
DX: R10.9 Unspecified abdominal pain (principal); K21.9 Gastro-esophageal reflux disease without esophagitis; K44.9 Diaphragmatic hernia without obstruction or gangrene
CPT/HCPCS: 78227; A9537; J2805

== ENCOUNTER 2024-06-24 09:16 | Outpatient (AMB) | payer OTHER, SELFPAY ==
--- NOTE | 2024-06-24 09:20 | A.OFFVIS_ITS ---
Vital Signs 06/24/24 09:24 Height 5 ft 2.5 in Weight 121 lb 4.068 oz BMI 21.8 BP 112/66 Blood Pressure Location Lt brachial Position Sitting Pulse 103 H Intake Visit Reasons: Abdominal pain Intake Note: Vera presents in the office as a follow up for abdominal pains. CC: States that she was referred over for a hernia repair and she states that she was sent for labs and testing and she is confused. She states that she is still having GERD. Dr. Richards stated that she did not have a hiatal hernia so she is frustrated that she got no answers. Passenger Locomotive Engineer Required: No Allergies No Known Allergies Allergy (Unknown, Verified 06/24/24 09:36) NOT APPLICABLE HPI HPI Abdominal pain: Details: 38 yr old being seen for f/u RECAP: she has horrible taste in her mouth globus sensation feeling something in throat can have food stuck in throat feels full all the time gets chest discomfort/pain--seems to be constant, stabbing sensation food might helps sx for 30 mins before recurrence she tried omeprazole , pantoprazole with variable success but not back to baseline on bland diet, not helped she has no constipation or diarrhea sx started about 3 months ago, but swallowing issue been longer she has asthma, worse in winter, allergy season no eczema brother has eosinophilic gastroenteritis no pets at home no hives, no mental fogginess sleep is poor due to PTSD EGD done: 11/2020----with dilation schatzki ring hiatal hernia gastritis--looked like healed erosions as well duodenitis esophagitis plan was for high dose PPI for 3 months and assess response rept EGD: EGD 02/2023 Findings: Larynx:normal Esophagus: GE junction at 34 cm, diaphragm hiatus at 37 cm, non obstructive schatzki ring noted, dilation done with 18 mm dilator using savary as well as disruption with forceps. Bx taken from GEj, distal esophagus and proximal esophagus in separate jars. 3 cm sliding hiatal hernia noted. Stomach: Mild erythema. Biopsies were obtained. Grade 2 flap valve on retroflexed examination of the cardia. Duodenum: normal duodenum, bx taken Intervention: Biopsies as noted above, savary dilation Impression/Findings: schatzki ring hiatal hernia gastritis PLAN: cont with PPI if sx persist then manometry and referral for hiatal hernia repair, consideration of fundoplication as well reflux precautions Ct 03/2023: no active colitis, fibroids INTERIM: she has ongoing issues with reflux she had her PPI stopped she stopped it 4 months ago she felt it wasnt helping her much actually she is doing lifestyle changes ongoing stress--has 3 kids, single mum, PTSD-- not great so now recent LFT with elevated ast, alt, fibrosure F0, [place] mildly elevated, Hep C neg no alcohol EXAM: GENERAL: The patient is well developed and nontoxic. VITAL SIGNS:see workflow HEENT: Nonicteric sclerae, PERRLA, EOMI. Oropharynx clear. Moist mucous membranes. Conjunctivae appear well perfused. No thyroid mass. CHEST: Chest wall is nontender. HEART: Regular rate and rhythm without murmurs. LUNGS: Clear to auscultation bilaterally. ABDOMEN: Soft, positive bowel sounds, nontender, no organomegaly.no flank t enderness SKIN: + rash on thumbs scaly and itchy, no excessive bruising, petechiae, or purpura. NEUROLOGIC: Cranial nerves II-XII intact without motor/sensory deficit. Psych: normal affect Assessment, 1/ Regurgitation, reflux and dysphagia, suspectd due to GERD, hernia noted on EGD maybe worse due to PTSD 2/ abn LFT< were nml a year ago PLAN: 1/pantoprazole 40 mg bid and then titrate down after 3 months to lowest dose that works 2/ complete liver serologies, a1at, ceruloplasmin, Igg, might need liver bx, PFSH Medical History Abdominal pain GERD (gastroesophageal reflux disease) Asthma PTSD (post-traumatic stress disorder) Complication of section wound Surgical History History of back surgery Hx of section Hx of tubal ligation History of esophagogastroduodenoscopy (EGD) [place] teeth extracted Family History Maternal Grandmother Cancer Brother Gastroenteritis Stomach ulcer Social History Household Members: Children Are you a primary managed care coordinator to a significant other at home: No Do you presently have visiting nurse or other home services: No Alcohol intake: current Alcohol intake frequency: does not drink Patient Tobacco Use Status: Never used Tobacco Second Hand Smoke Exposure: No Physical Exam Vital Signs: Last Vital Signs Pulse 103 H 06/24/24 09:24 BP 112/66 06/24/24 09:24 BMI result Body Mass Index 21.8 Assessment & Plan Assessment & Plan (1) Nonalcoholic steatohepatitis (WICK): Code(s): K75.81 - Nonalcoholic steatohepatitis (WICK) Category: Medical Plan: see above Orders: Orders Zinc Today K75.81 - Nonalcoholic steatohepatitis (WICK) Complete Blood Count Auto Diff Today K75.81 - Nonalcoholic steatohepatitis (WICK) Alpha 1 Anti-trypsin Today K75.81 - Nonalcoholic steatohepatitis (WICK) Immunoglobulin G Today K52.839 - Microscopic colitis, unspecified, K75.81 - Nonalcoholic steatohepatitis (WICK) Mitochondrial Antibody Today K75.81 - Nonalcoholic steatohepatitis (WICK), R79.89 - Other specified abnormal findings of blood chemistry Comprehensive Met. Panel Today K75.81 - Nonalcoholic steatohepatitis (WICK) Ceruloplasmin Today K75.81 - Nonalcoholic steatohepatitis (WICK) Smooth Muscle Antibody Today K75.81 - Nonalcoholic steatohepatitis (WICK) Soluble Liver Ag Autoantibody Today K75.81 - Nonalcoholic steatohepatitis (WICK) TSH reflex Free T4 Today K75.81 - Nonalcoholic steatohepatitis (WICK) Ferritin Today K75.81 - Nonalcoholic steatohepatitis (WICK) Magnesium Today K75.81 - Nonalcoholic steatohepatitis (WICK) IRON PROFILE Today K75.81 - Nonalcoholic steatohepatitis (WICK) Rast Allergen Today Z91.018 - Allergy to other foods Medications: New pantoprazole 40 mg PO BID 60 tabs 3RF Coding Level of Care Code Est Pt Level 4 (79354) Diagnoses Nonalcoholic steatohepatitis (WICK) K75.81
[2024-06-24 09:24] VITALS: BP 112/66; PULSE 103; BMI 21.8
== END 2024-06-24 10:30 | disposition home or self-care (01) ==
PROVIDERS: PCP Internal Medicine; Visit Provider Internal Medicine Gastroenterology
DX: K75.81 Nonalcoholic steatohepatitis (NASH) (principal)
CPT/HCPCS: 99214

== ENCOUNTER 2024-06-24 09:16 | Outpatient (REF) | payer OTHER, SELFPAY ==
[2024-06-24 10:51] LABS: MANUAL DIFF FLAG NO
[2024-06-24 12:00] LABS: Basophils Percent Auto 0.4 % (0-2); Eosinophils Absolute Auto 0.3 X10*3/uL (0.0-0.4); Eosinophils Percent Auto 5.5 % (0-4); Hematocrit 38.2 % (37.0-47.0); Hemoglobin 13.6 g/dl (12.0-16.0); Imm Gran Abs Auto 0.01 X10*3/uL (0.00-0.03); Imm Gran Pct Auto 0.2 % (0.0-0.4); Lymphocytes Absolute Auto 1.6 X10*3/uL (1.2-4.9); Lymphocytes Percent Auto 28.7 % (20-40); Mean Corpuscular HGB Conc 35.6 g/dl (31.0-35.0); Mean Corpuscular Hemoglobin 31.3 pg (27.0-33.0); Mean Platelet Volume 10.4 fL (9.4-12.3); Monocytes Absolute Auto 0.8 X10*3/uL (0.1-1.2); Monocytes Percent Auto 13.5 % (2-11); Neutrophils Absolute Auto 2.9 x10*3/uL (2.0-8.3); Neutrophils Percent Auto 51.7 % (45-73); Platelet Count 283 X10*3/uL (160-400); Red Blood Count 4.34 X10*6/uL (4.20-5.50); Red Cell Distribution Width 11.5 % (11.0-16.0); White Blood Count 5.6 X10*3/uL (4.8-10.8)
[2024-06-24 13:22] LABS: Alanine Aminotransferase 14 U/L (0-31); Albumin Level 4.4 g/dL (3.5-5.0); Alkaline Phosphatase 61 U/L (39-117); Anion Gap 14 (12-20); Aspartate Amino Transferase 17 U/L (5-31); Bilirubin Total 0.3 mg/dL (0.0-1.0); Blood Urea Nitrogen 11 mg/dL (9-16); Calcium 9.6 mg/dL (8.4-10.2); Carbon Dioxide 25 mmol/L (22-29); Chloride 105 mmol/L (96-108); Estimated Glomerular Filt Rate > 60; Glucose Random 77 mg/dL (60-115); Iron 35 mcg/dL (30-160); Magnesium 2.1 mg/dL (1.6-2.6); Percent Iron Saturation 13 % (15-50); Sodium 140 mmol/L (135-145); Total Iron Binding Capacity 269 mcg/dL (228-428); Total Protein 7.2 g/dL (6.5-8.0); Unsaturated Iron Binding 234 ug/dL
[2024-06-24 13:46] LABS: Ferritin 30 ng/mL (10-122); TSH reflex Free T4 2.63 uIU/mL (0.32-4.0)
[2024-06-25 10:29] LABS: Alpha 1 Anti-trypsin 157 mg/dL (83-199); Ceruloplasmin 28 mg/dL (14-48)
[2024-06-25 10:37] LABS: Immunoglobulin G 895 mg/dL (600-1640)
[2024-06-27 17:04] LABS: Mitochondrial Antibodies NEGATIVE (NEGATIVE)
[2024-06-27 21:03] LABS: Zinc 65 mcg/dL (60-130)
[2024-06-28 00:13] LABS: Smooth Muscle Antibody <20 U (<20)
[2024-07-01 13:38] LABS: Soluble Liver Ag Autoantibody <20.1 U (0.0-20.0)
== END 2024-06-24 09:17 | disposition home or self-care (01) ==
LOC: HO.LAB 09:16
PROVIDERS: PCP Internal Medicine; Visit Provider Internal Medicine Gastroenterology
DX: K75.81 Nonalcoholic steatohepatitis (NASH) (principal); R79.89 Other specified abnormal findings of blood chemistry; K52.839 Microscopic colitis, unspecified; R10.9 Unspecified abdominal pain; K21.9 Gastro-esophageal reflux disease without esophagitis; Z91.018 Allergy to other foods
CPT/HCPCS: 36415; 80053; 82103; 82390; 82728; 82784; 83520; 83540; 83735; 84443; 84630; 85025; 86003; 86015; 86381; 99212

== ENCOUNTER 2024-10-28 10:00 | Outpatient (AMB) | payer OTHER, SELFPAY ==
--- NOTE | 2024-10-28 10:01 | MHC.OFFVIS ---
Vital Signs 10/28/24 10:02 Height 5 ft 2.5 in Weight 132 lb 4.438 oz BMI 23.8 BP 113/73 Blood Pressure Location Lt brachial Position Sitting Pulse 102 H Intake Visit Reasons: 4 mnth follow up Intake Note: Vera presents in the office as a 4 month follow up. CC: She is still having a lot of reflux - denies any irregular bowel movements. Pains in the stomach due to the reflux. Virtual Assistant Required: No Allergies No Known Allergies Allergy (Unknown, Verified 10/28/24 10:09) NOT APPLICABLE HPI HPI 4 mnth follow up: Details: 38 yr old being seen for f/u RECAP: she has horrible taste in her mouth globus sensation feeling something in throat can have food stuck in throat feels full all the time gets chest discomfort/pain--seems to be constant, stabbing sensation food might helps sx for 30 mins before recurrence she tried omeprazole , pantoprazole with variable success but not back to baseline on bland diet, not helped she has no constipation or diarrhea sx started about 3 months ago, but swallowing issue been longer she has asthma, worse in winter, allergy season no eczema brother has eosinophilic gastroenteritis no pets at home no hives, no mental fogginess sleep is poor due to PTSD EGD done: 11/2020----with dilation schatzki ring hiatal hernia gastritis--looked like healed erosions as well duodenitis esophagitis plan was for high dose PPI for 3 months and assess response rept EGD: EGD 02/2023 Findings: Larynx:normal Esophagus: GE junction at 34 cm, diaphragm hiatus at 37 cm, non obstructive schatzki ring noted, dilation done with 18 mm dilator using savary as well as disruption with forceps. Bx taken from GEj, distal esophagus and proximal esophagus in separate jars. 3 cm sliding hiatal hernia noted. Stomach: Mild erythema. Biopsies were obtained. Grade 2 flap valve on retroflexed examination of the cardia. Duodenum: normal duodenum, bx taken Intervention: Biopsies as noted above, savary dilation Impression/Findings: schatzki ring hiatal hernia gastritis PLAN: cont with PPI if sx persist then manometry and referral for hiatal hernia repair, consideration of fundoplication as well reflux precautions Ct 03/2023: no active colitis, fibroids INTERIM: ongoing issues with reflux she had bid pantoprazole and felt it has not helped she has epigastric pain after she eats she can have in the morning as well stressful job with counselling last LFT were nml EXAM: GENERAL: The patient is well developed and nontoxic. VITAL SIGNS:see workflow HEENT: Nonicteric sclerae, PERRLA, EOMI. Oropharynx clear. Moist mucous membranes. Conjunctivae appear well perfused. No thyroid mass. CHEST: Chest wall is nontender. HEART: Regular rate and rhythm without murmurs. LUNGS: Clear to auscultation bilaterally. ABDOMEN: Soft, positive bowel sounds, nontender, no organomegaly.no flank tenderness SKIN: + rash on thumbs scaly and itchy, no excessive bruising, petechiae, or purpura. NEUROLOGIC: Cranial nerves II-XII intact without motor/sensory deficit. 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, not really responded to high dose PPI 2/ abn LFT< were nml a year ago, nml on repeat PLAN: 1/ try lansoprazole, if sx persist then convert to TCA 10 mg in 4-6 weeks--we talked about ramos but she wants to hold this 2/ recheck liver testing, [facility] Medical History Abdominal pain GERD (gastroesophageal reflux disease) Asthma PTSD (post-traumatic stress disorder) Complication of section wound Surgical History History of back surgery Hx of section Hx of tubal ligation History of esophagogastroduodenoscopy (EGD) [place] teeth extracted Family History Maternal Grandmother Cancer Brother Gastroenteritis Stomach ulcer Social History Household Members: Children Are you a primary manager critical care unit to a significant other at home: No Do you presently have visiting nurse or other home services: No Alcohol intake: current Alcohol intake frequency: does not drink Patient Tobacco Use Status: Never used Tobacco Second Hand Smoke Exposure: No Physical Exam Vital Signs: Last Vital Signs Pulse 102 H 10/28/24 10:02 BP 113/73 10/28/24 10:02 BMI result Body Mass Index 23.8 Assessment & Plan Assessment & Plan (1) GERD without esophagitis: Code(s): K21.9 - Gastro-esophageal reflux disease without esophagitis Category: Medical Plan: as above Orders: Orders Complete Blood Count Auto Diff Today K21.9 - Gastro-esophageal reflux disease without esophagitis Comprehensive Met. Panel Today K21.9 - Gastro-esophageal reflux disease without esophagitis, K75.81 - Nonalcoholic steatohepatitis (WICK) Medications: New lansoprazole 30 mg PO DAILY 30 caps 2RF Discontinued pantoprazole Discontinued Reason: Doctor's Order 40 mg PO BID 180 tabs 1RF Coding Level of Care Code Est Pt Level 3 (82635) Diagnoses GERD without esophagitis K21.9
[2024-10-28 10:02] VITALS: BP 113/73; PULSE 102; BMI 23.8
== END 2024-10-28 10:57 | disposition home or self-care (01) ==
PROVIDERS: PCP Internal Medicine; Visit Provider Internal Medicine Gastroenterology
DX: K21.9 Gastro-esophageal reflux disease without esophagitis (principal)
CPT/HCPCS: 99213

== ENCOUNTER 2024-10-28 10:00 | Outpatient (REF) | payer OTHER, SELFPAY ==
[2024-10-28 10:55] LABS: MANUAL DIFF FLAG NO
[2024-10-28 11:32] LABS: Basophils Percent Auto 0.5 % (0-2); Eosinophils Absolute Auto 0.3 X10*3/uL (0.0-0.4); Eosinophils Percent Auto 5.7 % (0-4); Hematocrit 37.4 % (37.0-47.0); Hemoglobin 12.8 g/dl (12.0-16.0); Imm Gran Abs Auto 0.02 X10*3/uL (0.00-0.03); Imm Gran Pct Auto 0.4 % (0.0-0.4); Lymphocytes Absolute Auto 1.5 X10*3/uL (1.2-4.9); Lymphocytes Percent Auto 26.9 % (20-40); Mean Corpuscular HGB Conc 34.2 g/dl (31.0-35.0); Mean Corpuscular Hemoglobin 30.3 pg (27.0-33.0); Mean Corpuscular Volume 88.4 fL (80.0-98.0); Monocytes Absolute Auto 0.7 X10*3/uL (0.1-1.2); Monocytes Percent Auto 11.7 % (2-11); Neutrophils Absolute Auto 3.1 x10*3/uL (2.0-8.3); Neutrophils Percent Auto 54.8 % (45-73); Platelet Count 320 X10*3/uL (160-400); Red Blood Count 4.23 X10*6/uL (4.20-5.50); Red Cell Distribution Width 11.9 % (11.0-16.0); White Blood Count 5.7 X10*3/uL (4.8-10.8)
[2024-10-28 12:11] LABS: Alanine Aminotransferase 21 U/L (0-31); Albumin Level 4.2 g/dL (3.5-5.0); Alkaline Phosphatase 54 U/L (39-117); Anion Gap 10 (12-20); Aspartate Amino Transferase 24 U/L (5-31); Bilirubin Total 0.3 mg/dL (0.0-1.0); Blood Urea Nitrogen 11 mg/dL (9-16); Calcium 8.7 mg/dL (8.4-10.2); Carbon Dioxide 29 mmol/L (22-29); Chloride 106 mmol/L (96-108); Estimated Glomerular Filt Rate > 60; Glucose Random 86 mg/dL (60-115); Potassium 3.8 mmol/L (3.3-5.1); Sodium 141 mmol/L (135-145); Total Protein 6.8 g/dL (6.5-8.0)
== END 2024-10-28 10:01 | disposition home or self-care (01) ==
LOC: HO.LAB 10:00
PROVIDERS: PCP Internal Medicine; Visit Provider Internal Medicine Gastroenterology
DX: K21.9 Gastro-esophageal reflux disease without esophagitis (principal); K75.81 Nonalcoholic steatohepatitis (NASH)
CPT/HCPCS: 36415; 80053; 85025; 99212

== ENCOUNTER 2025-04-28 09:07 | Outpatient (AMB) | payer BC, SELFPAY ==
--- NOTE | 2025-04-28 09:11 | A.OFFVIS_ITS ---
Vital Signs 04/28/25 09:12 Height 5 ft 2.5 in Weight 132 lb 4.438 oz BMI 23.8 BP 95/61 Blood Pressure Location Lt brachial Position Sitting Pulse 87 Intake Visit Reasons: 6 mo gerd Intake Note: Vera presents in the office as a 6 month follow up. CC: She states that she has not been having GERD and she states after she eats - it can be anything - she gets really dizzy. Allergies No Known Allergies Allergy (Unknown, Verified 04/28/25 09:13) NOT APPLICABLE HPI HPI 6 mo gerd: Details: 39 yr old being seen for f/u RECAP: she has horrible taste in her mouth globus sensation feeling something in throat can have food stuck in throat feels full all the time gets chest discomfort/pain--seems to be constant, stabbing sensation food might helps sx for 30 mins before recurrence she tried omeprazole , pantoprazole with variable success but not back to baseline on bland diet, not helped she has no constipation or diarrhea sx started about 3 months ago, but swallowing issue been longer she has asthma, worse in winter, allergy season no eczema brother has eosinophilic gastroenteritis no pets at home no hives, no mental fogginess sleep is poor due to PTSD EGD done: 11/2020----with dilation schatzki ring hiatal hernia gastritis--looked like healed erosions as well duodenitis esophagitis plan was for high dose PPI for 3 months and assess response rept EGD: EGD 02/2023 Findings: Larynx:normal Esophagus: GE junction at 34 cm, diaphragm hiatus at 37 cm, non obstructive schatzki ring noted, dilation done with 18 mm dilator using savary as well as disruption with forceps. Bx taken from GEj, distal esophagus and proximal esophagus in separate jars. 3 cm sliding hiatal hernia noted. Stomach: Mild erythema. Biopsies were obtained. Grade 2 flap valve on retroflexed examination of the cardia. Duodenum: normal duodenum, bx taken Intervention: Biopsies as noted above, savary dilation Impression/Findings: schatzki ring hiatal hernia gastritis PLAN: cont with PPI if sx persist then manometry and referral for hiatal hernia repair, consideration of fundoplication as well reflux precautions Ct 03/2023: no active colitis, fibroids LFT were normal INTERIM: she had good response to trazodone has helped her reflux a lot she has noted dizziness after she eats 20 mins later, new over the past month she has sweats and shakes still taking pantoprazole 40 mg BID job is going better, enjoying it more EXAM: GENERAL: The patient is well developed and nontoxic. VITAL SIGNS:see workflow HEENT: Nonicteric sclerae, PERRLA, EOMI. Oropharynx clear. Moist mucous membranes. Conjunctivae appear well perfused. No thyroid mass. CHEST: Chest wall is nontender. HEART: Regular rate and rhythm without murmurs. LUNGS: Clear to auscultation bilaterally. ABDOMEN: Soft, positive bowel sounds, nontender, no organomegaly.no flank tenderness SKIN:, no excessive bruising, petechiae, or purpura. NEUROLOGIC: Cranial nerves II-XII intact without motor/sensory deficit. 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 ?dumping syndrome, PLAN: 1/ check bp and pulse before and after food 2/ add fiber to diet and fluids, avoid high carbs--if ongoing then GES 3/ cut down PPI to once a day, cont with trazodone PFSH Medical History Abdominal pain GERD (gastroesophageal reflux disease) Asthma PTSD (post-traumatic stress disorder) Complication of section wound Surgical History History of back surgery Hx of section Hx of tubal ligation History of esophagogastroduodenoscopy (EGD) [place] teeth extracted Family History Maternal Grandmother Cancer Brother Gastroenteritis Stomach ulcer Social History Household Members: Children Are you a primary before and after school daycare worker to a significant other at home: No Do you presently have visiting nurse or other home services: No Alcohol intake: current Alcohol intake frequency: does not drink Patient Tobacco Use Status: Never used Tobacco Second Hand Smoke Exposure: No Physical Exam Vital Signs: Last Vital Signs Pulse 87 04/28/25 09:12 BP 95/61 04/28/25 09:12 BMI result Body Mass Index 23.8 Assessment & Plan Assessment & Plan (1) Early satiety: Code(s): R68.81 - Early satiety Category: Medical Plan: a adriano Coding Level of Care Code Est Pt Level 3 (59002) Diagnoses Early satiety R68.81
[2025-04-28 09:12] VITALS: BP 95/61; PULSE 87; BMI 23.8
--- OUTSIDE RECORDS SUMMARY | 2025-04-28 09:23 | XMS_ITS | Clinical Summary ---
Author Organization [facility] Address [address] [facility] [address] [place] [phone] Phone Care Team Providers Care Tub Wash Operator Name Role Phone Lindsay Corbin MD Primary Care Pr ovider Allergies No known active allergies Medications albuterol 2.5 mg /3 mL (0.083 %) nebulizer solution as needed. 06/17/2011 Active albuterol (PROAIR HFA) 90 mcg/actuation inhaler as needed. 10/08/2009 Active budesonide (PULMICORT FLEXHALER) 90 mcg/actuation inhaler TAKE 2 PUFFS BY MOUTH TWICE A DAY 07/30/2018 Active PARoxetine (PAXIL) 20 MG tablet Take 10 mg by mouth daily. 10/08/2018 Active SUMAtriptan (IMITREX) 50 MG tablet as needed. 07/31/2017 Active tiZANidine (ZANAFLEX) 4 MG tablet Take 1 tablet (4 mg total) by mouth every 6 (six) hours as needed. 30 tablet 1 11/22/2018 Active Active Problems Problem Noted Date Diagnosed Date Pain of both elbows 11/22/2018 Muscle spasms of both lower extremities 11/22/19 19 Family History Medical History Relation Comments Asthma Brother Asthma Father Asthma Mother Relation Status Comments Brother Father Mother Social History Tobacco Use Types Packs/Day Years Used Date Smoking Tobacco: Never Smokeless Tobacco: Never Alcohol Use Standard Drinks/Week Comments No 0 (1 standard drink = 0.6 oz pur e alcohol) Education Answer Date Recorded Are you interested in more education? Not on courtney e 02/03/2023 Are you concerned about learning? Not on file 02/03/2023 No 02/03/2023 No 02/03/2023 Digital Access Answer Date Recorded No 03/06/2023 No 03/06/2023 No 03/06/2023 Reliable internet access at home? Not on file 03/06/2023 Device with a working camera? Not on file Comments Unknown Sex and Gender Information Value Date Recorded Sex Assigned at Not on file Legal Sex Female 11:06 AM EDT Gender Identity Not on file Sexual Orientation Not on file Last Filed Vital Signs Vital Sign Reading Time Taken Comments Blood Pressure 124/60 11/22/2018 3:53 PM EST Pulse 90 06/17/2011 4:20 AM EDT Temperature - - Respiratory Rate - - Oxygen Saturation - - Inhaled Oxygen Concentration - - Weight 59.7 kg (131 lb 9.6 oz) 11/22/2018 3:53 P M EST Height 154.9 cm (5' 0.98 ) 11/22/2018 3:53 PM ES T Body Mass Index 24.88 11/22/2018 3:53 PM EST Plan of Treatment Health Maintenance Due Date Last Done Comments Adult Td,Tdap Booster 1986 DEPRESSION SCREENING 1998 HEPATITIS C SCREENING 2004 HIV ONE-TIME SCREENING (18-6 5 YEARS) 2004 PAP SMEAR 2007 COVID-19 VACCINE (2 2023-2 5 season) 2024 01/16/2021 SMOKING STATUS SCREENING (On ce After 26 Yrs) Completed 11/22/2018 HEPATITIS A VACCINES Aged Out No long er eligible based on patient's age to complete this topic HIB VACCINES Aged Out No longer eligi ble based on patient's age to complete this topic MENINGOCOCCAL VACCINES (ACWY) Aged Out No longer eligible based on patient's age to complete this topic MENINGOCOCCAL VACCINES (B) Aged Out N o longer eligible based on patient's age to complete this topic PNEUMOCOCCAL VACCINES (0-49 years) Aged Out No longer eligible based on patient's age to complete this topic Medical Devices Not on file [facility] [place] [address] [place] [address] [place] [address] [place] [address] [place] [address] [place] [address] [address] [place] [address] [place] [address] [place] [address] HMO POS Care Teams Tub Wash Operator Relationship Specialty Start Date End Date Lindsay Corbin MD [address] [place] [id number] PCP - General Internal Medicine 11/12/18 Additional Source Comments The information contained in this document represents components of the legal health record. It is not the complete legal health record.[facility]
--- OUTSIDE RECORDS SUMMARY | 2025-04-28 09:24 | XMS_ITS | Data Portability ---
Author Organization [place] [facility], Allergy Address [address] [address] Care Team Providers Care Speech Therapist Early Intervention Name Role Phone CHERYL VALENTIN Primary Care Provider [phone] Assessment Encounter Date Assessment Date Assessment LastModified by Organization Details LastModified Time 01/07/2025 01/07/2025 Patient with right pulsatile tinnitus, episodic dizziness with right aural pressure and hearing decline, and right-sided headaches. Physical exam reveals no identifiable source of these symptoms involving the auricle, external auditory canal, or tympanic membrane. Audiometric testing and tympanometry are similarly unrevealing. Reviewed with patient I think her symptoms are multi-factorial. Regarding the pulsatile tinnitus, differential diagnosis includes aneurysm or other vascular anomaly versus retrocochlear pathology. Recommend MRI of the brain and internal auditory canal. For the episodic aural fullness with disequilibrium, history, physical exam and audiometric findings are consistent with vestibular migraine (migraine associated dizziness). Today we discussed the pathophysiology of migraine and migraine-associa jackeline phenomena such as dizziness and fluctuating hearing. We discussed how the patient's balance disturbance symptoms are likely mediated by a central processing abnormality rather than an isolated inner ear abnormality. I gave the patient a significant amount of literature to review at home regarding how there are many environmental and dietary triggers that can lead to not only migraine headaches but balance disturbance symptoms as well. We spent a lot of time discussing the importance of following a migraine diet. We have offered the patient a copy of the Heal Your Headache book to read at home, which gives a [id number] discussion on what causes migraine and how to make the necessary lifestyle and dietary changes to significantly reduce or eliminate migraine symptoms. I have also recommended the use of dietary supplements magnesium, vitamin B2 and feverfew which have been shown to help control migrainous phenomena. We discussed dosage and schedule for these supplements. We discussed alternative of using Migranol, which contains a combination of magnesium, vitamin B2, and feverfew. Patient will follow up to discuss the results of the MRI and re-evaluate. For the sharp pains behind and in the ear that spread along the top and side of the head and face and persist for hours without associated symptoms, we discussed this is most likely consistent with intermittent inflammation of the jaw joint or spasm of the surrounding musculature. This is likely exacerbated by the dental clenching and grinding . I recommended the patient use light massage, warm compresses and anti-inflammator ies for symptomatic management. Stressed chewing evenly on both sides of the mouth to keep from overworking the jaw joint. Use soft food diet as needed. Jaw Joint Program information sheet was shared. If this treatment plan is ineffective, recommend follow up with their dentist.Referral to physical therapist who specializes in TMJ disorders could also be considered. [email or web address] Not available 01/07/2025 12:17:57 Plan of Treatment Reminders Order Date Submit Date Provider Last Modified By Organization Details Last Modified Time Details Appointments None recorded. Lab None recorded. Referral None recorded. Procedures None recorded. Surgeries None recorded. Imaging MRI, brain + internal auditory canal, w/wo contrast 2024 025 [email or web address] [facility] ([facility] [address] [place] [address], [address], 10:01:37 Medication Orders None recorded. Patient TargetsNo targets recorded. Patient InstructionsNo instructions recorded. Reason for Referral None Reported. Results Created Date Observation Date Name Description Value Unit Range Abnormal Flag Note LastModifiedBy Organization Detail LastModifiedTime 01/08/20 25 audio gram No observ ation record ed. BARCODE Not Available 2024 10:32:04 03/20/20 25 02/18/2025 MRI, brain + inter nal audit ory canal , w/wo contr ast No observ ation [place], [address], 03/20/2025 09:33:52 Result Notes None recorded. Problems Name Problem SNOMED Code Status Onset Date Resolution Date Notes Provider Name and Address Organization Details Recorded Time Subjective pulsatile tinnitus of right ear 5259219637628 108 Active 2024 TRICE CORREIA, AUD [address] [facility], [address] [facility], [facility] [place], [address], [facility] - [facility] 09:28:43 Pain of right temporomand ibular joint 1180639566181 9107 Active 2024 YAYA PINA [address], [address] [facility], [place], [address], [place] - [facility] 11:48:46 Migrainous vertigo 144903335 Active 2024 YAYA PINA [facility] [address], [address] [facility], [facility] [place], [address], [place] - [facility] 11:48:53 Subjective pulsatile tinnitus 9282808479167 04 Active 2024 YAYA PINA [place]- [address], [address] [facility], [facility] [place], [address], [place] - [facility] 15:48:57 Problem Notes None recorded. Procedures Surgical History Date Name Laterality Status Provider Name and Address Organization Details Recorded Time 01/07/2025 Air & Speech Audio with Tymps - 88372, 44920 & 26773 completed TRICE CORREIA, YANDEL [address] [facility],[address], [address], [facility] - [facility] 01/07/2025 09:34:24 Imaging Results None recorded. Procedure Notes None recorded. Medical Equipment None Reported. Allergies No known drug allergies Medications Name Sig Start Date Stop Date Status Note LastModified by Organization Details LastModified Time cyclobenzap rine 10 mg tablet TAKE 1 TABLET BY MOUTH 2 TIMES DAY NEEDED FOR SPASMS 01/03 completed Not Available Not Available Not Available amoxicillin 500 mg capsule TAKE 2 CAPSULES BY MOUTH IMMEDIATE LY THEN TAKE 1 CAPSULE BY MOUTH EVERY 8 HOURS UNTIL FINISHED 01/03 completed Not Available Not Available Not Available bupropion HCl SR 150 mg tablet,12 hr sustained-r elease TAKE 1 TABLET BY MOUTH TWICE A DAY 01/03 completed Not Available Not Available Not Available clonidine HCl 0.1 mg tablet TAKE 1 TABLET BY MOUTH ONCE PER DAY NEEDED 01/03 completed Not Available Not Available Not Available Carafate 100 mg/mL oral suspension TAKE 10 ML BY MOUTH 3 TIMES A DAY BEFORE MEALS AND BEDTIME FOR 7 DAYS 01/03 completed Not Available Not Available Not Available albuterol sulfate 2.5 mg/3 mL (0.083 %) solution for nebulizatio n INHALE 1 VIAL VIA NEBULIZER EVERY 6 HOURS NEEDED FOR WHEEZING active Not Available Not Available No t Available trazodone 50 mg tablet TAKE 1 TABLET BY MOUTH AT BEDTIME FOR SLEEP active Not Available Not Available No t Available cetirizine 10 mg tablet TAKE 1 TABLET BY MOUTH EVERY DAY 01/03 completed Not Available Not Available Not Available azithromyci n 250 mg tablet TAKE 2 TABLETS BY MOUTH TODAY, THEN TAKE 1 TABLET DAILY FOR 4 DAYS DIRECTED 01/03 completed Not Available Not Available Not Available benzonatate 200 mg capsule TAKE 1 CAPSULE BY MOUTH 3 TIMES A DAY FOR 7 DAYS 01/03 completed Not Available Not Available Not Available prednisone 20 mg tablet TAKE 1 TABLET BY MOUTH TWICE A DAY FOR 5 DAYS 01/03 completed Not Available Not Available Not Available sumatriptan 50 mg tablet TAKE 1 TAB 1X NEEDED FOR MIGRAINE MAY REPEAT DOSE IN 2HRS IF NEEDED MAX 2TABS/24H RS/3 DOSES/WK active Not Available Not Available No t Available topiramate 25 mg tablet PLEASE SEE ATTACHED FOR DETAILED DIRECTION S 01/03 completed Not Available Not Available Not Available bupropion HCl SR 100 mg tablet,12 hr sustained-r elease TAKE 1 TABLET BY MOUTH TWICE A DAY active Not Available Not Available No t Available bupropion HCl 100 mg tablet TAKE 1 TABLET BY MOUTH TWICE A DAY 01/03 completed Not Available Not Available Not Available pantoprazol e 40 mg tablet,gayatri yed release TAKE 1 TABLET BY MOUTH TWICE A DAY active Not Available Not Available No t Available erythromyci n 5 mg/gram (0.5 %) eye ointment APPLY SMALL AMOUNT INTO LEFT EYE FOUR TIMES A DAY APPLY TO INCISION SITE FOR 1 WEEK THEN STOP 01/03 completed Not Available Not Available Not Available lansoprazol e 30 mg capsule,del ayed release TAKE 1 CAPSULE BY MOUTH EVERY DAY 01/03 completed Not Available Not Available Not Available prednisone 50 mg tablet TAKE 1 TABLET BY MOUTH EVERY DAY FOR 5 DAYS WITH FOOD OR MILK 01/03 completed Not Available Not Available Not Available methylpredn isolone 4 mg tablets in a dose pack TAKE 6 TABLETS ON DAY 1 DIRECTED ON PACKAGE AND DECREASE BY 1 TAB EACH DAY FOR A TOTAL OF 6 DAYS 01/03 completed Not Available Not Available Not Available ondansetron 4 mg disintegrat ing tablet PLEASE SEE ATTACHED FOR DETAILED DIRECTION S 01/03 completed Not Available Not Available Not Available fluticasone propionate 50 mcg/actuati on nasal spray,suspe nsion USE 1 SPRAYS INTO BOTH NOSTRILS 2 TIMES A DAY NEEDED FOR CONGESTIO N 01/03 completed Not Available Not Available Not Available doxycycline hyclate 100 mg tablet TAKE 1 TABLET BY MOUTH TWICE A DAY FOR 7 DAYS 01/03 completed Not Available Not Available Not Available amoxicillin 875 mg-potassiu m clavulanate 125 mg tablet TAKE 1 TABLET BY MOUTH EVERY 12 HOURS FOR 7 DAYS 01/03 completed Not Available Not Available Not Available Ventolin HFA 90 mcg/actuati on aerosol inhaler TAKE 2 PUFFS BY MOUTH EVERY 4 HOURS active Not Available Not Available No t Available oxycodone 5 mg tablet TAKE 1 TABLET BY MOUTH EVERY 6 HOURS NEEDED FOR PAIN FOR 3 DAYS 01/03 completed Not Available Not Available Not Available levonorgest rel 0.15 mg-ethinyl estradiol 30 mcg tablets,3 mos pack(91) TAKE 1 TABLET BY MOUTH EVERY DAY 01/03 completed Not Available Not Available Not Available Pulmicort Flexhaler 90 mcg/actuati on breath activated INHALE 2 PUFFS TWICE A DAY active Not Available Not Available No t Available bupropion HCl 150 mg tablet,12 hr sustained-r elease(smok ing deterrent) TAKE 1 TABLET BY MOUTH TWICE A DAY 01/03 completed Not Available Not Available Not Available Vitals Date Recorded Body height Body mass index (BMI) Body weight Provider Name and Address Organization Details Last Updated DateTime 01/07/2025 157.48 cm 24.7 kg/m2 87060.97 g Silvia Lang [place] - [facility] 01/07/2025 09:39:17 Social History None recorded. Functional Status None recorded. Mental Status None recorded. Family History Nothing Reported. Medical History Condition Response Hearing Loss Y Gynecological HistoryNo gynecological history recorded. Obstetrics History GPAL:G 0 P 0 0 0 0 Past Encounters Encounter ID Performer Location Encounter Start Date Encounter Closed Date Diagnosis/Indication Diagnosis SNOMED-CT Code Diagnosis ICD10 Code Diagnosis Note [id number] YAYA PINA PA-C [facility] [address] [address] 01/07/2025 09:19:21 01/07/2025 10:08:58 Subjective pulsatile tinnitus of right ear [id number] 504354 H93.A1 Right Ear:Normal hearing with excellent speech discrimina tion.Type A tympanogra m.Left Ear:Normal hearing with excellent speech discrimina tion.Type A tympanogra m. Pain of ri ght temporomandibular joint 9589695010 [id number] M26.621 Migrainous vertigo 84397 4007 H81.8X9 Health Concerns Section Related Observation LastModified by Organization Detai ls LastModified Time None Recorded Concern Status LastModified by Organization Details LastModified Time None Recorded Advance Directives Directive None Recorded Payers Insurance Date Sequence Insurance Name Policy Number Policy Watkins Covered Member ID Watkins Member ID Guarantor Name 01/07/2025 1 [place] [facility] [id number] Vera E Eliseerman [id number] Vera E Eliseerman 01/07/2025 2 [place] [facility] Vera E Alderman [id number] Vera Polanco Notes Date Note Type Note Provider Name and Address Organization Details Recorded Time 01/07/2025 text/html 39 year old quinten buitrago presents for evaluation of ears. In recent months she has been having 2-3 episodes per day that consist of right aural pressure, diminished hearing on that side, and sensation like everything is swaying. Spontaneously clears; feels like the ear pops, then the balance returns to normal. Usually over a matter of minutes to hours. There is no tinnitus with these episodes. Has been experiencing episodic pulsatile tinnitus in the right ear, many times per day, for the past couple of months. Definitely in time with pulse. Persists for less than a minute. Not associated with silence or exertion; can occur in any position. No other type of tinnitus at any time. There is no associated syncope, confusion, slurred speech, vision change, loss of visual field, chest pain, heart palpitations, nor extremity or facial weakness or paralysis. Also having bad right-sided headaches. Starts as a sharp pain inside and behind the right ear and progresses up and over the head. Persist for hours, usually the rest of the day. Usually occur later in the day and then feels okay when she wakes up the next morning. There is no increased photosensitivity or phonophobia with those headaches. She wears a custom mouth guard for jaw clenching, which she reports she only does in her sleep. Has migraines that will occur 2-3 times per month for a while and then go away for months at a time. Those present with severe nausea, a different type of dizziness, sensitivity to odors and lights, and a unilateral headache that can be on either side. Headaches are not worst of lifetime and neither type has thunderclap onset. Last saw ophthalmology last year, got her glasses Rx updated. No significant history of otitis and no otologic surgeries. No significant history of excessive noise exposure. No known family history of Meniere's disease, early hearing loss, or aneurysm, though she notes she does not have access to her family's medical history. YAYA PINA PA-C [address] [place] [address], [phone], [facility] - [facility] 01/07/2025 12:18:55 OBGyn Episode No OBEpisode recorded.
== END 2025-04-28 09:42 | disposition home or self-care (01) ==
LOC: HO.HGI 09:07
PROVIDERS: PCP Internal Medicine; Visit Provider Internal Medicine Gastroenterology
DX: R68.81 Early satiety (principal)
CPT/HCPCS: 99213